=== PATIENT | male | born 1955 | race Caucasian/White ===

== ENCOUNTER 2024-09-05 02:03 | Observation (INO) | payer SELFPAY ==
[2024-09-05] VITALS (9 sets, daily range): BP systolic 136–181; BP diastolic 81–94; PULSE 75–98; RESP 14–20; TEMP 36.4–36.8; O2SAT 94–100; BMI 28.5
--- NOTE | ~2024-09-05 | XR_ITS ---
EXAMINATION: XR chest 2V 09/05/2024 02:47 INDICATION: Shortness of breath and cough. Hemoptysis. PROCEDURE: 2 view chest COMPARISON: No prior studies for comparison. FINDINGS: The lungs are clear. The cardiomediastinal silhouette is within normal limits. There are no pleural effusions. There is no pneumothorax suspected. IMPRESSION: 1: NO ACUTE CARDIOPULMONARY DISEASE. Reviewed, dictated and finalized at location A. RAL MEDIATOR
--- NOTE | ~2024-09-05 | CT_ITS ---
EXAMINATION: CTA chest PE abdomen pel DATE: 09/05/2024 7:47 FIELD SERVICE TECHNICIAN POULTRY INDICATION: Hemoptysis. TECHNIQUE: Computed tomographic angiography (CTA) of the chest, abdomen, and pelvis was performed wit hout and with 100 mL Omnipaque-350 intravenous contrast. The dose-length product was 1423.85 mGy-cm. Maximum intensity projection 3D-reconstructions of the aorta and other arteries were constructed by fabiola kan technologist on a separate workstation. COMPARISON: Chest x-ray dated 09/05/2024. FINDINGS: CHEST CTA: There is a right lower lobe mass at the azygos esophageal recess measuring 2.3 x 1.9 cm with internal coarse calcifications. Involvement of lower lobe bronchi is not excluded. There is adjacent right lo wer lobe consolidation. There is emphysema. Heart size normal. There are calcified right hilar lymph nodes, consistent with chronic granulomatous disease. There is atherosclerosis of the aorta and coron laura arteries without evidence for aneurysm or dissection. Study is not optimized for evaluation of pu lmonary embolism. There are borderline mediastinal lymph nodes, likely reactive. No significant pleur al or pericardial effusion. ABDOMEN AND PELVIS CTA: Fatty infiltration of the liver. There are calcified granulomas of the spleen. The pancreas are unrem arkable. Right adrenal gland is unremarkable. There are low density masses in the left adrenal gland, largest measuring approximate 1.3 cm, statistically most likely benign adenomas. There is mild ectas ia of the infrarenal abdominal aorta. There are bilateral renal cysts. Gallbladder is present. Nonobs tructive bowel gas pattern. No free air or free fluid. Enlarged prostate gland. Moderate lumbar spond ylosis. There is grade 1 spondylolisthesis at L5-S1 secondary to bilateral spondylolysis. Moderate th oracic spondylosis. No focal lytic or blastic lesions. IMPRESSION: 1. Right lower lobe nodule measuring up to 2.3 cm at the as azygoesophageal recess. This mass contain s coarse internal calcifications in the the related to chronic granulomatous disease, although neopla sm is not excluded. There is evidence for chronic granulomatous disease in the right hilum and spleen . Consider correlation with bronchoscopy. 2: Focal right lower lobe consolidation adjacent to the previously mentioned mass which may represent postobstructive atelectasis or pneumonia. Reviewed, dictated and finalized at location A. D SERVICE TECHNICIAN POULTRY IMPRESSION: 1. Right lower lobe nodule measuring up to 2.3 cm at the as azygoesophageal rec ess. This mass contains coarse internal calcifications in the the related to ch ronic granulomatous disease, although neoplasm is not excluded. There is eviden ce for chronic granulomatous disease in the right hilum and spleen. Consider co rrelation with bronchoscopy. 2: Focal right lower lobe consolidation adjacent to the previously mentioned ma ss which may represent postobstructive atelectasis or pneumonia.
--- OUTSIDE RECORDS SUMMARY | 2024-09-05 02:05 | XMS_ITS | Continuity of Care Document ---
Author Organization [facility] Address [address] [facility] [address] [place] [address] Phone Care Team Providers Care Power Electronics Engineer Name Role Phone Sari Vázquez Unavailable Unavailable Procedures Procedure Date Office/outpatient Visit, Est Office/outpatient Visit, Est Post-op Follow-up Visit Post-op Follow-up Visit Remove Cataract, Insert Lens Eye Exam & Treatment Echo Exam Of Eye-Professional 7 Advance Directives Directive Yes / No Effective Date File Name No Information Encounters Encounter Description Practice Location Reason(s) For Visit Diagnoses Date Provider Providers Copied on Encounter Office/outpat ient Visit, [facility], [address] [place] [address] [address], [place], [place], [id number], [place] tel:[phone] [facility] No Information 0 Kathie Vallejo [address] [facility] , [address], [place], [address], [place]. tel:[phone] Office/outpat ient Visit, [facility], [address] [place] [address] [address], [place], [place], [id number], [place] tel:[phone] SEC [facility] No Information 201 0 Kathie Vallejo [address] [facility] , [address], [place], [address], [place]. tel:[phone] [facility], [address] [place] [address] [address], [place], [place], [id number], [place] tel:[phone] SEC [facility] No Information 7 Kathie Vallejo [address] , [address], [place], [place], [facility], [place]. tel:[phone] [facility], [address] [place] [address] [address], [place], [place], [id number], tel:[phone] SEC [facility] No Information 2200 7 Kathie Vallejo [address] , [address], [place], [facility], [place]. tel:[phone] [facility], [address] [place] [address] [address], [place], [place], [id number], tel:[phone] [facility] No Information 7 Kathie Vallejo [address] [facility] , [address], [place], [facility], [place]. tel:[phone] [facility], [address] [place] [address] [address], [place], [place], [address], [place] tel:[phone] SEC [facility] No Information 7 Kathie Vallejo [address] [facility] , [address], [place], [facility], [place]. tel:[phone] Referring Provider: [address], [place], [facility]. tel:[phone] Family History Family Member Type Diagnosis Age At Onset No Information Payers Payer name Insurance type Covered constitution party ID Jose soto(s) [facility] CI [id number] Social History Type Description Quantity Date Captured Comments Sex Male Smoking Status No Information Chief Complaint And Reason For Visit No Information Reason For Referral Reason For Referral No Information History Of Present Illness Encounter Date Complaint History Of Prese nt Illness No Information Functional Status Date Functional Assessmen t No Information Instructions Date Instruction Additional Infor mation No Information Assessments Type Assessment Date No Information Patient Care Teams Name Effective Dates (start - stop) Status Members No Information
--- OUTSIDE RECORDS SUMMARY | 2024-09-05 02:06 | XMS_ITS | CONTINUITY OF CARE DOCUMENT ---
Author Name nain gillette Address Unknown Organization [facility] Address [address] [place] [address] [address] [place] [address] Phone [phone] Care Team Providers Care Cabin Furnishings Installer Name Role Phone MISAEL SEVILLA MD Unavailable [phone] MISAEL SEVILLA MD Unavailable [phone] INSURANCE PROVIDERS Payer name Policy type / Coverage type [place] red alliance party ID [facility] [employer] insurance company [id number]
--- NOTE | 2024-09-05 02:17 | ECG_ITS ---
Test Date: 2024-09-05 02:20:48 Measurements Intervals Brantley Rate: 78 P: 57 AK: 156 QRS: -24 QRSD: 103 T: 43 QT: 383 QTc: 439 Interpretive Statements SINUS RHYTHM BORDERLINE LEFT AXIS DEVIATION [QRS AXIS < -20] No previous ECG available for comparison Electronically Signed On 09-05-2024 14:30:31 STRATEGIC PLANNING SPECIALIST by Joo Myers M.D.
[2024-09-05 02:41] LABS: Basophils Absolute Auto 0.1 K/mm3 (0.0-0.1); Basophils Percent Auto 0.5 % (0.2-1.2); Eosinophils Absolute Auto 0.3 K/mm3 (0-0.3); Eosinophils Percent Auto 1.9 % (0-4.4); Hematocrit 50.4 % (42.0-52.0); Hemoglobin 16.5 g/dL (14.0-18.0); Immature Granulocyte Absolute 0.03 K/mm3 (0.00-0.031); Immature Granulocyte Percent A 0.2 % (0-0.5); Lymphocytes Absolute Auto 4.31 K/mm3 (0.9-3.2); Lymphocytes Percent Auto 30.8 % (18.3-44.2); Mean Corpuscular HGB Conc 32.7 g/dl (32-36); Mean Corpuscular Hemoglobin 30.4 pg (26-34); Mean Platelet Volume 11.1 fl (7.4-10.4); Monocytes Absolute Auto 1.4 K/mm3 (0.1-0.6); Monocytes Percent Auto 10.1 % (2.6-8.5); Neutrophils Absolute Auto 7.9 K/mm3 (1.3-6.7); Neutrophils Percent Auto 56.5 % (45.5-73.1); Platelet Count Result 288 k/mm3 (150-375); Red Blood Count 5.42 M/mm3 (4.6-6.20); Red Cell Distribution Width 13.7 % (11.5-14.5)
[2024-09-05 02:51] LABS: Alanine Aminotransferase 26 U/L (6-50); Albumin Level 4.6 g/dL (3.5-5.1); Alkaline Phosphatase 119 U/L (38-126); Anion Gap 15 mmol/L (4-12); Aspartate Amino Transferase 32 U/L (17-59); Bilirubin,Total 0.8 mg/dL (0.2-1.3); Blood Urea Nitrogen 9 mg/dL (9-20); Calcium 9.9 mg/dL (8.4-10.2); Carbon Dioxide 21 mmol/L (22-30); Chloride 104 mmol/L (98-107); Estimated CRCL calculation 97 ml/min; Estimated Glomerular Filt Rate > 60; Glucose 106 mg/dL (65-110); Sodium 140 mmol/L (137-145)
[2024-09-05 03:17] LABS: Influenza A QL RT-PCR Negative (Negative); Influenza B QL RT-PCR Negative (Negative); RSV RNA, RT-PCR Negative (Negative); SARS-CoV-2 RNA PCR Negative (Negative)
--- NOTE | 2024-09-05 07:12 | ED.SOB ---
HPI - SOB/Dyspnea General Chief Complaint: Shortness of Breath/Dyspnea Stated Complaint: coughing up blood Time Seen by Provider: 09/05/24 07:08 Source: patient and family Mode of arrival: ambulatory Limitations: no limitations History of Present Illness HPI Narrative: 69 years old white male came to the ED with his from home complaining of spitting up blood started last night. Also complaining of intermittent abdominal pain back pain. Patient denies any fever, chills, nausea, vomiting, diarrhea, constipation. History of GERD on omeprazole. Patient is not on any anti-platelet or anticoagulant medication, last time was seen by a physician 2011. He vapes, denied alcohol or drug use Related Data Home Medications ?Medication ?Instructions ?Recorded ?Confirmed ?Last Taken ?Type mcaeeuyy-jii-icxyh acid 0.4 1 tablet PO DAILY 09/05/24 09/05/24 09/04/24 History mg-lycopene 300 mcg-lutein 250 mcg tablet (Centrum Silver) omeprazole 20 mg capsule,delayed 20 mg PO DAILY 09/05/24 09/05/24 09/02/24 History release Allergies Allergy/AdvReac Type Severity Reaction Status Date / Time chlordiazepoxide (From Allergy Unknown Rash Verified 09/05/24 13:07 Librium) Review of Systems Review of Systems: All systems reviewed & are unremarkable except as noted in HPI and below PMFSH Family History Family History Father Acute myocardial infarction Mother Diabetes mellitus Mother Sepsis Social History Social History Smoking status: Never smoker Alcohol intake: never Substance use type: marijuana Other substance usage details: Vape Last use: 09/03/24 Do You Feel Safe in your Home?: Yes Lack of Transportation: No Lack of Food: Never True Current Housing: I Have Housing Concerned About Future Housing: No Difficulty Paying Gas/Electric Bills: No Difficulty Paying for Meds: No Currently Unemployed: No Education: High School Diploma/GED Difficulty w/ Childcare or Family Care: No Spiritual care concerns: No Exam Narrative: General appearance: Well-developed, well-nourished Skin: Normal color Head: Normocephalic, nontraumatic Eyes: Clear conjunctiva ENT: Oropharynx normal, ears normal, nose normal Neck: Supple, nontender Chest and respiratory: Airway patent, no respiratory distress, no accessory muscle use Heart: Regular rate/rhythm Abdomen: Soft, nontender, no organomegaly, quiet bowel sounds Vascular: Normal peripheral pulses, normal capillary refill. Musculoskeletal: Normal range of motion, nontender back Neurologic: Alert and oriented ?3, WELL SERVICE PUMP EQUIPMENT OPERATOR is normal as tested, no gross motor deficit Course Consultations Consultation #1: Dr. john Accepted consultation Date: 09/05/24 Time: 08:43 Vital Signs Vital signs: Vital Signs Pulse Rate 94 09/05/24 02:05 Respiratory Rate 19 09/05/24 02:05 Blood Pressure 181/86 H 09/05/24 02:05 Pulse Oximetry 99 09/05/24 02:05 Oxygen Delivery Room Air 09/05/24 02:05 Temperature 36.4 C 09/06/24 14:00 Pulse Rate 90 09/06/24 14:00 Respiratory Rate 18 09/06/24 14:00 Blood Pressure 147/91 H 09/06/24 14:00 Pulse Oximetry 99 09/06/24 14:00 Oxygen Delivery Room Air 09/06/24 08:00 MDM - SOB/Dyspnea Lab Data 09/05/24 02:22 09/05/24 02:21 Labs: Lab Results 09/05/24 09/05/24 Range/Units 02:21 02:22 WBC 14.0 H (4.5-10.0) K/mm3 RBC 5.42 (4.6-6.20) M/mm3 Hgb 16.5 (14.0-18.0) g/dL Hct 50.4 (42.0-52.0) % MCV 93.0 (80-100) fl MCH 30.4 (26-34) pg MCHC 32.7 (32-36) g/dl RDW 13.7 (11.5-14.5) % Plt Count 288 (150-375) k/mm3 MPV 11.1 H (7.4-10.4) fl Immature Gran % (Auto) 0.2 (0-0.5) % Neut % (Auto) 56.5 (45.5-73.1) % Lymph % (Auto) 30.8 (18.3-44.2) % Lagrange % (Auto) 10.1 H (2.6-8.5) % Eos % (Auto) 1.9 (0-4.4) % Baso % (Auto) 0.5 (0.2-1.2) % Lymph # (Auto) 4.31 H (0.9-3.2) K/mm3 [place] # (Auto) 1.4 H (0.1-0.6) K/mm3 Eos # (Auto) 0.3 (0-0.3) K/mm3 Baso # (Auto) 0.1 (0.0-0.1) K/mm3 Abs Immat Gran (auto) 0.03 (0.00-0.031) K/mm3 Absolute Neuts (auto) 7.9 H (1.3-6.7) K/mm3 Absolute Nucleated RBC 0.000 (0.0-0.012) K/mm3 Nucleated RBC % 0.0 (0.0-0.2) % Sodium 140 (137-145) mmol/L Potassium 4.0 (3.4-5.0) mmol/L Chloride 104 (98-107) mmol/L Carbon Dioxide 21 L (22-30) mmol/L Anion Gap 15 H (4-12) mmol/L BUN 9 (9-20) mg/dL Creatinine 0.69 L (0.7-1.3) mg/dL Estim Creat Clear Calc 97 ml/min Estimated GFR > 60 (59 - ) Glucose 106 (65-110) mg/dL Calcium 9.9 (8.4-10.2) mg/dL Total Bilirubin 0.8 (0.2-1.3) mg/dL AST 32 (17-59) U/L ALT 26 (6-50) U/L Alkaline Phosphatase 119 (38-126) U/L C-Reactive Protein < 0.5 (<1.0) mg/dL Total Protein 8.0 (6.3-8.2) g/dL Albumin 4.6 (3.5-5.1) g/dL Influenza A (RT-PCR) Negative (Negative) Influenza B (RT-PCR) Negative (Negative) RSV (RT-PCR) Negative (Negative) SARS-CoV-2 RNA (RT-PCR) Negative (Negative) Imaging Data Radiologist's impression: Impressions Chest X-Ray 09/05/24 05:35 IMPRESSION: 1: NO ACUTE CARDIOPULMONARY DISEASE. Chest/Abdomen/Pelvis CTA 09/05/24 07:47 IMPRESSION: 1. Right lower lobe nodule measuring up to 2.3 cm at the as azygoesophageal recess. This mass contains coarse internal calcifications in the the related to chronic granulomatous disease, although neoplasm is not excluded. There is evidence for chronic granulomatous disease in the right hilum and spleen. Consider correlation with bronchoscopy. 2: Focal right lower lobe consolidation adjacent to the previously mentioned mass which may represent postobstructive atelectasis or pneumonia. Critical Care Time Critical Care Time Critical Care Time: No Discharge Plan Discharge Patient Disposition: Still a Patient Condition: Improved
--- OUTSIDE RECORDS SUMMARY | 2024-09-05 07:41 | XMS_ITS | Continuity of Care Document ---
Author Organization [facility] Address [address] [facility] [address] [place] [address] Phone Care Team Providers Care Tumbler Machine Operator Name Role Phone Sari Vázquez Unavailable Unavailable [...] Providers Copied on Encounter Office/outpat ient Visit, [facility], [address] [place] [address] [address], [place], [place], [id number], [place] tel:[phone] [facility] [place] No Information [address] [facility] [place] , [address], [place], [address], [place]. tel:[phone] Office/outpat ient Visit, [facility], [address] [place] [address] [address], [place], [place], [id number], [place] tel:[phone] SEC [facility] No Information 201 0 Kathie Vallejo [address] [facility] , [address], [place], [address], [place]. tel:[phone] [facility], [address] [place] [address] [address], [place], [place], [id number], [place] tel:[phone] SEC [facility] No Information 7 Kathie Vallejo [address] , [address], [place], [place], [facility], [place]. tel:[phone] [facility], [address] [place] [address] [address], [place], [place], [address], tel:[phone] SEC [facility] No Information 2200 7 Kathie Vallejo [address] , [address], [place], [place], [facility], [place]. tel:[phone] [facility], [address] [place] [address] [address], [place], [place], [address], tel:[phone] [facility] No Information [address] [facility] [facility] , [address], [place], [place], [facility], [place]. tel:[phone] [facility], [address] [place] [address] [address], [place], [place], [id number], [place] tel:[phone] [facility] No Information [address] [facility] , [address], [place], [place], [facility], [place]. tel:[phone] Referring Provider: [address], [place], [place], [facility]. tel:[phone] Family History Family Member Type Diagnosis Age At Onset No Information Payers Payer name Insurance type Covered libertarian ID Jose soto(s) [facility] CI [id number] Social History Type Description Quantity Date Captured [...]
--- OUTSIDE RECORDS SUMMARY | 2024-09-05 07:41 | XMS_ITS | CONTINUITY OF CARE DOCUMENT ---
Author Name nain gillette Address Unknown Organization [facility] Address [address] [place] [address] [address] [place] [address] Phone [phone] Care Team Providers Care Turner Off Name Role Phone MISAEL SEVILLA MD Unavailable [phone] MISAEL SEVILLA MD Unavailable [phone] INSURANCE PROVIDERS Payer name Policy type / Coverage type [place] red republican ID [facility] [employer] insurance company 8 [id number]
[2024-09-05 08:50] LABS: CRP < 0.5 mg/dL (<1.0)
[2024-09-05] MEDS: AZITHROMYCIN 500 MG/NS 250 ML 500 MG/250 ML BAG 250 MG IVPB (09:01)
[2024-09-05 09:17] LABS: Lactic Acid Reflex 1.4 mmol/L (0.7-2.0)
[2024-09-05 09:30] LABS: Prothrombin Time 13.4 Seconds (11.1-14.7)
--- NOTE | 2024-09-05 11:18 | PC.NURSE ---
heart healthy lunch tray ordered
[2024-09-05] MEDS: SODIUM CHLORIDE 0.9% IV 1,000 ML 125 ML IV CONT (11:21)
--- NOTE | 2024-09-05 11:31 | P.HP_ITS ---
H&P: HPI History of Present Illness Date/Time: 09/05/24 11:31 Chief Complaint: Hemoptysis Narrative: This is a 69-year-old male who presents to the ED with complaints of spitting up blood since 2 days. He states that he has been having intermittent cough for the past week. No fever chills or night sweats. Cough was present with expectoration however was clear in the beginning. Since past 2 days he had noti keri blood in his phlegm. The amount of blood has since then reduced speech time and has not been having any blood since last night. He denies any shortness of breath or chest pain. In the ED vitals were stable except for high blood pressure. Laboratory workup revealed WBC of 14 K hemoglobin of 16.5 Chem panel was unremarkable. Influenza RSV COVID swab was negative. Chest x-ray was done which showed no acute cardiopulmonary disease. Chest abdomen pelvis CTA showed right lower lobe nodule measuring up to 2.3 cm at the age ago esophageal recess. This mass contains coarse internal calcifica tions in the related to chronic granulomatous disease although neoplasm is not excluded. There is evidence for chronic granulomatous disease in the right hilum and spleen. Consider correlation with bronchoscopy. Focal right lower lobe consolidation adjacent to the previously mentioned mass which may represent post obstructive atelectasis or pneumonia. He is admitted in this setting for further treatment. Review of Systems Review of Systems: - CONSTITUTIONAL: Denies weight loss, fe shavonne and chills. - HEENT: Denies changes in vision and he aring - RESPIRATORY: Denies SOB and cough. Se e HPI - CV: Denies palpitations and CP. - GI: Denies abdominal pain, nausea, vom iting and diarrhea. - : Denies dysuria and urinary frequen cy. - MSK: Denies myalgia and joint pain. - SKIN: Denies rash and pruritus. - NEUROLOGICAL: Denies headache and sync ope. - PSYCHIATRIC: Denies recent changes in mood. Denies anxiety and depression. Meds Home Medications and Allergies Home Medications ?Medication ?Instructions ?Recorded ?Confirmed ?Type omeprazole 20 mg capsule,delayed 20 mg PO DAILY 09/05/24 09/05/24 History release Allergies Allergy/AdvReac Type Severity Reaction Status Date / Time chlordiazepoxide (From Allergy Unknown Rash Verified 09/05/24 08:40 Librium) Vital Signs Vital Signs - 24 hr 09/05/24 02:05 09/05/24 02:16 09/05/24 05:28 Pulse Rate 94 Respiratory Rate 19 Blood Pressure 181/86 H Pulse Oximetry 99 99 100 Oxygen Delivery Room Air Room Air Room Air 09/05/24 05:31 09/05/24 08:11 09/05/24 08:30 Pulse Rate 81 83 97 Respiratory Rate 14 18 Blood Pressure 150/94 H 144/90 H Pulse Oximetry 98 96 Oxygen Delivery Exam Narrative: GENERAL: The patient is well developed, not in acute distress HEENT: Nonicteric sclerae, PERRLA, EOMI. Oropharynx clear. Moist mucous membranes. Conjunctivae appear well perfused. CHEST: Chest wall is nontender. HEART: Regular rate and rhythm without murmur, rubs, or gallops LUNGS: Clear to auscultation bilaterally. no respiratory distress ABDOMEN: Soft, positive bowel sounds, non-tender, no organomegaly. SKIN: No rash, no excessive bruising, petechiae, or purpura. NEUROLOGIC: Cranial nerves II-XII intact, alert and oriented x 3, no gross motor deficits EXTREMITIES: no edema, cyanosis or clubbing H&P: Results Labs Labs: Short CBC 09/05/24 Range/Units 02:22 WBC 14.0 H (4.5-10.0) K/mm3 Hgb 16.5 (14.0-18.0) g/dL Hct 50.4 (42.0-52.0) % Plt Count 288 (150-375) k/mm3 [facility] 09/05/24 02:21 Sodium 140 Potassium 4.0 Chloride 104 Carbon Dioxide 21 L BUN 9 Creatinine 0.69 L Glucose 106 Calcium 9.9 Liver Function 09/05/24 Range/Units 02:21 Total Bilirubin 0.8 (0.2-1.3) mg/dL AST 32 (17-59) U/L ALT 26 (6-50) U/L Alkaline Phosphatase 119 (38-126) U/L Albumin 4.6 (3.5-5.1) g/dL Assessment and Plan Assessment and plan (1) Hemoptysis: Code(s): R04.2 - Hemoptysis Status: Acute (2) Pneumonia: Code(s): J18.9 - Pneumonia, unspecified organism Status: Acute (3) Lung nodule: Code(s): R91.1 - Solitary pulmonary nodule Status: Acute Plan This is a 69-year-old male who presents to the ED with complaints of spitting up blood since 2 days. He states that he has been having intermittent cough for the past week. No fever chills or night sweats. Cough was present with expectoration however was clear in the beginning. Since past 2 days he had noticed blood in his phlegm. The amount of blood has since then reduced speech time and has not been having any blood since last night. He denies any shortness of breath or chest pain. In the ED vitals were stable except for high blood pressure. Laboratory workup revealed WBC of 14 K hemoglobin of 16.5 Chem panel was unremarkable. Influenza RSV COVID swab was negative. Chest x-ray was done which showed no acute cardiopulmonary disease. Lactic acid is normal Chest abdomen pelvis CTA showed right lower lobe nodule measuring up to 2.3 cm at the age ago esophageal recess. This mass contains coarse internal calcifications in the related to chronic granulomatous disease although neoplasm is not excluded. There is evidence for chronic granulomatous disease in the right hilum and spleen. Consider correlation with bronchoscopy. Focal right lower lobe consolidation adjacent to the previously mentioned mass which may represent post obstructive atelectasis or pneumonia. He is admitted in this setting for further treatment. Pulmonary will be consulted He will be treated for right lower lobe pneumonia with antibiotics. Sputum culture will be obtained. He will likely need bronchoscopy evaluation evaluation of this nodule given hemoptysis. No history of smoking but he does vape regularly. DVT prophylaxis SCDs Hypertension continue to monitor not on any medications at home Code status full code Hospitalist [facility] Advance Care Plan I have confirmed that the patient's Advanced Care Plan is present, code status is documented, or surrogate decision maker is listed in patient medical record.: Yes Medication Reconciliation I have utilized all available resources to obtain, update and review the patients current medications (includes all prescriptions, OTC, herbals, cannabis, and nutritional supplements).: Yes
[2024-09-05] MEDS: PANTOPRAZOLE 40 MG TABLET PO (12:12)
--- NOTE | 2024-09-05 12:47 | ADMGEN ---
This patient, Alex Kiser, was admitted to 3 [facility] Surg Room 306-02. Patient/family oriented to hospital policies and general routines including ID bracelet, bed and alarms, visiting hours, pain management, procedures, bathroom and other care routines, personal items, smoking policy, room service/diet, and visiting hours. Information on how to activate the Rapid Response Team has been discussed. Patient/Family are encouraged to report perceived risks to care and to ask questions if they do not understand what they are told or what they should do.
--- NOTE | 2024-09-05 13:07 | P.CONPL_ITS ---
Assessment and Plan Assessment and plan (1) Hemoptysis: Code(s): R04.2 - Hemoptysis Status: Acute Assessment and Plan: Symptoms began September 03 7:00 p.m., he coughed and tasted blood in his mouth, cough significant amount of blood which then stopped. On September 04 he cleared his throat, had a little bit of sputum. On September 05 he again coughed in this time he had significant blood, coughed it into the toilet, walk the dog outside and spit on the ground. His convinced him to come to the hospital. He has not vapes since arrival, hemoptysis stopped, has not had any for about 24 hours. Our plan is to treat for pneumonia, let the patient be discharged home, follow-up in the office a repeat the CT scan in 6 weeks. If he has hemoptysis in the meantime, he needs return to [place]. I do not think that the nodule is causing hemoptysis. It is not connected to an airway. We can consider EBUS if we decide the nodule in the right hilum needs to be biopsied. Right now, my thinking is that this nodule is likely benign. (2) Pneumonia: Code(s): J18.9 - Pneumonia, unspecified organism Status: Acute Assessment and Plan: Empiric treatment for pneumonia, minimal infiltrate on chest x-ray. He did have fever or chills, does not have sputum production. He is a lifelong nonsmoker but he does vape marijuana and probably smokes marijuana, he would not say so in front of his but he did smoke marijuana for several years. He has never been a cigarette smoker. Pneumonia lab testing is still pending, his swab was negative for influenza A/B, RSV and COVID. (3) Lung nodule: Code(s): R91.1 - Solitary pulmonary nodule Status: Acute Assessment and Plan: Has a 2.3 cm partially calcified nodule in the right hilar area, not amenable to regular bronchoscopy. He is being treated for pneumonia which is appropriate. He had significant hemoptysis, spit in the toilet, this covered a large amount of toilet water, then when outside, had hemoptysis and returned inside the house. This patient vapes which is a known cause of hemoptysis. A calcification in the nodule suggests this may be a benign nodule. He needs follow-up in the clinic, his has our number and she can call Sunday for an appointment in a month. I would like to repeat his CT scan in 6 weeks. He also needs a primary care doctor, has had a 35 lb weight loss, increasing exertional dyspnea, wheezing, will also need pulmonary function testing. He needs a colonoscopy. Has not seen a doctor in years, last times was 2 kidney stones 9 years ago. (4) Unintended weight loss: Code(s): R63.4 - Abnormal weight loss Status: Acute Assessment and Plan: He has had 35 lb lost in a year and a half with many GI symptoms during same period of time; hard stools alternating with loose explosive stools, no blood in stools, however has daily disruptions in his bowel habits. Never had a colonoscopy. He is overdue. (5) Current cannabis vaping on some days: Code(s): F12.90 - Cannabis use, unspecified, uncomplicated Status: Acute Assessment and Plan: If you need it, eat it. He uses marijuana for control of back pain. Dose not want to eat edibles due to unreliable effects. From the lung standpoint, edibles are better than vaping. Vaping is associated with diffuse alveolar damage, lipoid penumonia and hemoptysis. I strongly encourage NOT vaping. (6) Flu vaccine refused: Code(s): Z28.21 - Immunization not carried out because of patient refusal Status: Acute Assessment and Plan: Patient is a lifelong vaccination refused her, did not have COVID vaccination and had 1 episode of COVID, no flu, RSV or other vaccines. Plan plan: Right lung nodule 2.3 cm with calcifications, making cancer less likely. Hemoptysis was severe, quick, stopped. Last hemoptysis was over 24 hours ago. He had a 35 lb weight loss in 1.5 years with fatigue. Needs colonoscopy. He needs a primary care doctor; has not seen a doctor in decades, urologist 9 years with 2 kidney stones Needs repeat CT chest in 6 weeks to see if this has cleared. Recommend stopping vaping, and he should use edibles as this is not as bad for his lungs. He wheezes at home, often with any exertion. He has had 35 lb weight loss in 1.5 years. Has abdominal bloating, pain, alternating hard and liquid stools, never had a colonscopy. and daughter reviewed images, discussed these issues. checks BP at home, often 120s/80-90 diastolic. He likely has undiagnosed hypertension. Will need an echo eventually. If you need it, eat it. He uses marijuana for control of back pain. Dose not want to eat edibles due to unreliable effects. From the lung standpoint, edibles are better than vaping. Vaping is associated with diffuse alveolar damage, lipoid pneumonia and hemoptysis. I strongly encourage NOT vaping. sees Bernadine Singh MD and will see if this doctor can take a new patient. [place] [id number] Ph:? tel:[phone] Please call our office Sunday [phone] Sunday after 8:30 am for appt in a month. Return to [place] if coughing blood returns. Written instructions given, discussed with the and the daughter at length. History of Present Illness History of Present Illness Consult date: 09/06/24 Requesting physician: Tony Lantigua MD Chief complaint: Hemoptysis/Pulmonary Mass/Pneumonia Narrative: Patient was seen September 06, 2024 at 12:15, room 306; his Mary is present and daughter Carly is present. Patient agrees to the interview with his family members present. NEW: Alex Kiser is a 69-year-old man admitted through the ER Sep 05, with hemoptysis, abnormal chest CT. Dr Lantigua called me from the ER. He has a RLL nodule which is 2.3 cm located in the as ago esophageal recess. .Symptoms began September 03 7:00 p.m., he coughed and tasted blood in his mouth, cough significant amount of blood which then stopped. On September 04 he cleared his throat, had a little bit of sputum. On September 05 he again coughed in this time he had significant blood, coughed it into the toilet, walk the dog outside and spit on the ground. His convinced him to come to the hospital. He retired from [employer] factory about 8 years ago. He was exposed to chlorine, sulfuric acid, ammonia and other chemicals but he did not feel that he had any breathing problems at the time that he work there. He lives in [facility] and has lived there is whole life. He is a never smoker, he has vape for at least a year and a half, vapes medical marijuana for severe back and neck pain. He has also smoked marijuana for several years. He has not tried at a bull marijuana, does not think that it is effective for him. According to his , he has been weak more short of breath with less exertion in the last year and a half, during the time that he has lost 35 lb. He is now short of breath trying to do things it previously were quite easy for him. He tries to do the full grocery shopping for a full month in 1 day, has to sit down and rest when he brings the groceries in. He wheezes with exertion. He has not had this problem before. SLEEP: He snores but does not wake with a dry mouth, does not gasp for breath and does not have excessive daytime sleepiness. He and his sleep in separate rooms because he thrashes and moves around quite a bit at night. They have been together 35 years, and he slings is arms and hits her during sleep. There is no history of acting out his dreams. Family history no history of lung cancer. Father at age 49 from a myocardial infarction, also a kidney stone. Mother age 69, blood infection, had cancer of the female organs, had her bladder removed. Patient does not have a history of asthma. He was seen in [place] at the ER a decade or so ago for an episode of bronchitis. The patient has not had a medical doctor for decades. He did have urologist 9 years ago when he had 2 kidney stones. He has a scant cough with very little sputum production, does not have any medications at home. DATA * 09/05/2024 CTA ; CHEST CTA: There is a right lower lobe mass at the azygos esophageal recess measuring 2.3 x 1.9 cm with internal coarse calcifications. Involvement of lower lobe bronchi is not excluded. There is adjacent right lower lobe consolidation. There is emphysema. Heart size normal. There are calcified right hilar lymph nodes, consistent with chronic granulomatous disease. There is atherosclerosis of the aorta and coronary arteries without evidence for aneurysm or dissection. Study is not optimized for evaluation of pulmonary embolism. There are borderline mediastinal lymph nodes, likely reactive. No significant pleural or pericardial effusion. ABDOMEN AND PELVIS CTA: Fatty infiltration of the liver. There are calcified granulomas of the spleen. The pancreas are unremarkable. Right adrenal gland is unremarkable. There are low density masses in the left adrenal gland, largest measuring approximate 1.3 cm, statistically most likely benign adenomas. There is mild ectasia of the infrarenal abdominal aorta. There are bilateral renal cysts. Gallbladder is present. Nonobstructive bowel gas pattern. No free air or free fluid. Enlarged prostate gland. Moderate lumbar spondylosis. There is grade 1 spondylolisthesis at L5-S1 secondary to bilateral spondylolysis. Moderate thoracic spondylosis. No focal lytic or blastic lesions. IMPRESSION: 1. Right lower lobe nodule measuring up to 2.3 cm at the as azygoesophageal recess. This mass contains coarse internal calcifications in the the related to chronic granulomatous disease, although neoplasm is not excluded. There is evidence for chronic granulomatous disease in the right hilum and spleen. Consider correlation with bronchoscopy. 2: Focal right lower lobe consolidation adjacent to the previously mentioned mass which may represent postobstructive atelectasis or pneumonia. Review of Systems 2 Review of Systems: 35 lb unintended weight loss in the last year and a half; bowels habits have changed in the last year and a half also, very hard stools alternating with diarrhea, unpredictable output with explosion of feces verses sometimes constipation. No blood in his stools. He has severe low back pain and cervical neck pain, this is why he vapes marijuana for the last 1.5 years. Prior to that, smokes marijuana after he quit working. He feels that living in [place] has been difficult for his breathing, grew up there. Has difficulty breathing with weather changes. He has intermittent wheezing but does not use any inhaler. He is more short of breath with less exertion over the last few months. Walking up one flight of stairs is hard for him now. [facility] Family History Family History (Updated 09/05/24 @ 13:07 by Marcella Pete RN) Father Acute myocardial infarction Mother Diabetes mellitus Mother Sepsis Social History Social History Smoking status: Never smoker Alcohol intake: never Substance use type: marijuana Other substance usage details: Vape Last use: 09/03/24 Do You Feel Safe in your Home?: Yes Lack of Transportation: No Lack of Food: Never True Current Housing: I Have Housing Concerned About Future Housing: No Difficulty Paying Gas/Electric Bills: No Difficulty Paying for Meds: No Currently Unemployed: No Education: High School Diploma/GED Difficulty w/ Childcare or Family Care: No Spiritual care concerns: No Meds Home Medications and Allergies Home Medications ?Medication ?Instructions ?Recorded ?Confirmed ?Type yewnclzw-aec-dstnm acid 0.4 1 tablet PO DAILY 09/05/24 09/05/24 History mg-lycopene 300 mcg-lutein 250 mcg tablet (Centrum Silver) omeprazole 20 mg capsule,delayed 20 mg PO DAILY 09/05/24 09/05/24 History release Allergies Allergy/AdvReac Type Severity Reaction Status Date / Time chlordiazepoxide (From Allergy Unknown Rash Verified 09/05/24 13:07 Librium) Vital Signs Vital Signs - 24 hr 09/05/24 02:05 09/05/24 02:16 09/05/24 05:28 Temperature Pulse Rate 94 Respiratory Rate 19 Blood Pressure 181/86 H Pulse Oximetry 99 99 100 Oxygen Delivery Room Air Room Air Room Air 09/05/24 05:31 09/05/24 08:11 09/05/24 08:30 Temperature Pulse Rate 81 83 97 Respiratory Rate 14 18 Blood Pressure 150/94 H 144/90 H Pulse Oximetry 98 96 Oxygen Delivery 09/05/24 11:32 Temperature 36.6 C Pulse Rate 91 Respiratory Rate 20 Blood Pressure 136/81 Pulse Oximetry 96 Oxygen Delivery Exam 2 Narrative: GEN: Alert, oriented, not in distress. Room air. HEENT: pupils are equal, EOMI, symmetrical face; oral membranes moist, Mallampati III airway, large long uvula NECK: Trachea is midline CHEST: Equal air entry, symmetric excursion, clear breath sounds CV: Regular S1S2 no m/g/r ABD : (+) bowel sounds Extremities : no clubbing, cyanosis, edema, no calf tenderness PSYCH: normal thought and speech Results Laboratory Findings 09/05/24 02:22 09/05/24 02:21 ABG, PT/INR, D-dimer: PT/INR, D-dimer PT 13.4 Seconds (11.1-14.7) 09/05/24 08:53 INR 1.0 09/05/24 08:53 Abnormal lab findings: Abnormal Labs 09/05/24 09/05/24 02:21 02:22 WBC 14.0 H MPV 11.1 H [place] % (Auto) 10.1 H Lymph # (Auto) 4.31 H [place] # (Auto) 1.4 H Absolute Neuts (auto) 7.9 H Carbon Dioxide 21 L Anion Gap 15 H Creatinine 0.69 L
[2024-09-06] MEDS: SODIUM CHLORIDE 0.9% IV 1,000 ML 125 ML IV CONT ×2 (00:51→08:50)
[2024-09-06 05:46] VITALS: BP 149/94; PULSE 86; RESP 14; TEMP 36.4; O2SAT 99
[2024-09-06] MEDS: AZITHROMYCIN 500 MG/NS 250 ML 500 MG/250 ML BAG 250 MG IVPB (08:51)
[2024-09-06] MEDS: PANTOPRAZOLE 40 MG TABLET PO (08:51)
--- NOTE | 2024-09-06 12:25 | PM.IMPN ---
Progress Note: A&P Assessment and Plan (1) Hemoptysis: Code(s): R04.2 - Hemoptysis Status: Acute (2) Pneumonia: Code(s): J18.9 - Pneumonia, unspecified organism Status: Acute (3) Lung nodule: Code(s): R91.1 - Solitary pulmonary nodule Status: Acute Plan Hemoptysis Right lower lobe nodule CT chest showed right lower love nodule up to 2.3 cm hemoptysis resolved, none mroe than 24 hrs Pulmonology following and plans for bronchoscopy RLL Pneumonia CT chest showed focal right lobe consolidation ?post obstructive Continue Rocephin, Azithromycin and Flagyl, will discharge on Augmentin and Azithromycin F/u with Blood culture, MRSA monitor BPH with urinary frequency Patient noted he has not been on Flomax since retiring due to losing his insurance restart Flomax If frequency does not improve, will discharge on [place] to follow up with Urology referral to urology on discharge Constipation No prior colonoscopy discussed with patient that he will need colonoscopy He will follow up with PCP for referral Continue Miralax as needed DVT prophylaxis on SCDs due to hemoptysis Subjective Date/time seen: 09/06/24 12:25 Interval history: Patient comfortable at bedside and noted no coughing up blood more than 24 horus Exam Narrative: GENERAL: The patient is well developed, not in acute distress HEENT: Nonicteric sclerae, PERRLA, EOMI. Oropharynx clear. Moist mucous membranes. Conjunctivae appear well perfused. CHEST: Chest wall is nontender. HEART: Regular rate and rhythm without murmur, rubs, or gallops LUNGS: Clear to auscultation bilaterally. no respiratory distress ABDOMEN: Soft, positive bowel sounds, non-tender, no organomegaly. SKIN: No rash, no excessive bruising, petechiae, or purpura. NEUROLOGIC: Cranial nerves II-XII intact, alert and oriented x 3, no gross motor deficits EXTREMITIES: no edema, cyanosis or clubbing Objective Data Vital Signs Vital Signs: Vital Signs - 24 hr 09/05/24 14:00 09/05/24 21:56 09/06/24 05:46 Temperature 98.2 F 97.5 F L 97.5 F L Pulse Rate 98 75 86 Respiratory Rate 20 20 14 Blood Pressure 157/86 H 142/81 H 149/94 H Pulse Oximetry 94 99 99 Oxygen Delivery 09/06/24 08:00 Temperature Pulse Rate Respiratory Rate Blood Pressure Pulse Oximetry Oxygen Delivery Room Air Intake/Output Intake/Output: Intake & Output 09/03/24 09/04/24 09/05/24 09/06/24 23:59 23:59 23:59 23:59 Intake Total 1540 1787.9 Output Total 300 Balance 1240 1787.9 Meds/Results Medications: Active Medications Generic Name Dose Route Start Last Admin Trade Name Freq PRN Reason Stop Dose Admin Acetaminophen 650 mg 09/05/24 08:45 Acetaminophen 325 Mg Tablet PO Q4H PRN Mild Pain (1-3) or Fever Ceftriaxone Sodium 1 gm in 50 mls @ 100 mls/hr 09/05/24 09:00 09/06/24 10:35 Rocephin 1 Gm/Ns 50 Ml IVPB Infused Q24H RUDY Infusion Azithromycin 500 mg in 250 mls @ 250 mls/hr 09/05/24 09:00 09/06/24 09:50 Zithromax IVPB Infused Q24H RUDY Infusion Sodium Chloride 1,000 mls @ 125 mls/hr 09/05/24 08:45 09/06/24 08:50 Normal Saline Iv IV CONT 125 mls/hr .Q8H RUDY Administration Pantoprazole Sodium 40 mg 09/05/24 11:40 09/06/24 08:51 Pantoprazole 40 Mg Tablet PO 40 mg QAM RUDY Administration Tamsulosin HCl 0.4 mg 09/06/24 12:25 Tamsulosin Hcl 0.4 Mg Capsule PO QAM [facility] Radiology Results: ITS Impressions Chest X-Ray 09/05/24 05:35 IMPRESSION: 1: NO ACUTE CARDIOPULMONARY DISEASE. Chest/Abdomen/Pelvis CTA 09/05/24 07:47 IMPRESSION: 1. Right lower lobe nodule measuring up to 2.3 cm at the as azygoesophageal recess. This mass contains coarse internal calcifications in the the related to chronic granulomatous disease, although neoplasm is not excluded. There is evidence for chronic granulomatous disease in the right hilum and spleen. Consider correlation with bronchoscopy. 2: Focal right lower lobe consolidation adjacent to the previously mentioned mass which may represent postobstructive atelectasis or pneumonia.
[2024-09-06] MEDS: TAMSULOSIN HCL 0.4 MG CAPSULE PO (13:56)
[2024-09-06 14:00] VITALS: BP 147/91; PULSE 90; RESP 18; TEMP 36.4; O2SAT 99
--- NOTE | 2024-09-09 08:34 | PM.DS ---
DS: Admitting Diagnosis Discharge Date 09/06/24 Admitting Diagnosis Hemoptysis DS: Discharge Diagnosis Discharge Diagnosis (1) Pneumonia: Code(s): J18.9 - Pneumonia, unspecified organism Status: Acute (2) Lung nodule: Code(s): R91.1 - Solitary pulmonary nodule Status: Acute DS: Summary Hospital Course Hospital Course: This is a 69-year-old male who presents to the ED with complaints of spitting up blood since 2 days. He states that he has been having intermittent cough for the past week. No fever chills or night sweats. Cough was present with expectoration however was clear in the beginning. Since past 2 days he had noticed blood in his phlegm. The amount of blood has since then reduced speech time and has not been having any blood since last night. He denies any shortness of breath or chest pain. In the ED vitals were stable except for high blood pressure. Laboratory workup revealed WBC of 14 K hemoglobin of 16.5 Chem panel was unremarkable. Influenza RSV COVID swab was negative. Chest x-ray was done which showed no acute cardiopulmonary disease. Chest abdomen pelvis CTA showed right lower lobe nodule measuring up to 2.3 cm at the age ago esophageal recess. This mass contains coarse internal calcifications in the related to chronic granulomatous disease although neoplasm is not excluded. There is evidence for chronic granulomatous disease in the right hilum and spleen. Consider correlation with bronchoscopy. Focal right lower lobe consolidation adjacent to the previously mentioned mass which may represent post obstructive atelectasis or pneumonia. Patient was started on Rocephin, Azithromycin and flagyl, during hospitalization patient did not have any hemoptysis. Pulmonology was consulted evaluated patient and recommended bronchoscopy for the hemoptysis and RLL nodule. however since the hemoptysis resolved bronchoscopy was scheduled for outpatient. Thus patient was discharged on Abx and will follow up with pulmonology for outpatient bronchoscopy F/u with PCP in 3-5 days f/u with pulm as instructed Time Spent with Patient Time attestation: Total time spent providing and/or coordinating discharge services: DS: Data Data Completed and Pending Labs on day of discharge: Preliminary micro results at discharge 09/05/24 08:53 Blood Culture - Preliminary Blood 09/05/24 08:53 Blood Culture - Preliminary Blood Discharge Plan Discharge Attending physician on discharge: Sully Akbar Consulting providers: Apryl Nicole; Anastacio Owen; Joo Myers; Luis Carlos Mensah Discharging Clinician: Sully Akbar Anticipated Discharge Date/Time: 09/06/24 12:34 Patient Disposition: Home, Self-Care Activity: as tolerated Diet: as tolerated Discharge Instructions: F/u with PCP in 3-5 days F/u with referral to urology PCP to refer to Gi for colonoscopy Patient Instructions: Antibiotic Form Patient Language: Ugandan Stand Alone Forms: General Discharge Information Follow-up/Referrals: randall [Other] Apryl Nicole MD [Physician] - (F/u with pulmonology as instructed ) Elias Yanez MD [Physician] - (F/u with urology in 2 weeks ) UNKNOWN,DOCTOR [Non-Staff] - (F/u with PCP in 3-5 days ) Discharge Medications: New tamsulosin 0.4 mg Capsule 0.4 mg PO QAM 30 Days Qty: 30 0RF amoxicillin-pot clavulanate 875-125 mg tablet 1 tablet PO Q12H 6 Days Qty: 12 0RF azithromycin 250 mg tablet 250 mg PO DAILY 3 Days Qty: 3 0RF Rx Instructions: start on day 2 of therapy polyethylene glycol 3350 [Miralax] 17 gram/dose powder 17 g PO DAILY 30 Days Qty: 510 0RF Continued omeprazole 20 mg capsule,delayed release(DR/EC) 20 mg PO DAILY Centrum Silver 0.4 mg-300 mcg- 250 mcg tablet 1 tablet PO DAILY Date of admission: 09/05/24 08:45 Primary Care Provider: PHYSICIAN,APPRENTICE LINEMAN THIRD STEP Admitting Provider: Gerald Guajardo Attending physician on admission: Sully Akbar Condition: Improved
[2024-09-10 22:53] LABS: Pneumococcal Antigen Urine NOT DETECTED
[2024-09-11 17:48] LABS: Mycoplasma IgM Antibody Titer 231 U/mL
[2024-09-11 23:47] LABS: Legionella pneumophila Ag Ur NOT DETECTED
== END 2024-09-06 15:45 | disposition home or self-care (01) ==
LOC: ANHED 08:50 → ANH3MEDSUR 09-06 12:37
PROVIDERS: Internal Medicine; Student in an Organized Health Care Education/Training Program; Admitting Provider Internal Medicine; Emergency Provider Emergency Medicine; Visit Provider Internal Medicine
DX: J18.9 Pneumonia, unspecified organism (principal); R04.2 Hemoptysis; R91.1 Solitary pulmonary nodule; K21.9 Gastro-esophageal reflux disease without esophagitis; F17.290 Nicotine dependence, other tobacco product, uncomplicated; R63.4 Abnormal weight loss; Z68.28 Body mass index [BMI] 28.0-28.9, adult; F12.90 Cannabis use, unspecified, uncomplicated; I10 Essential (primary) hypertension; N40.1 Benign prostatic hyperplasia with lower urinary tract symptoms; R35.0 Frequency of micturition; K59.00 Constipation, unspecified; Z28.21 Immunization not carried out because of patient refusal; Z20.822 Contact with and (suspected) exposure to COVID-19; Z28.310 Unvaccinated for COVID-19; Z79.899 Other long term (current) drug therapy
CPT/HCPCS: 36415; 71046; 71275; 74177; 80053; 83605; 85025; 85610; 85730; 86140; 86738; 87040; 87449; 87637; 87899; 93005; 96361; 96365; 96366; 96367; 99285; A9270; G0378; J0456; J0696; J7030; Q9967

== ENCOUNTER 2024-10-23 13:41 | Outpatient (CLI) | payer MEDICARE, SELFPAY ==
--- NOTE | ~2024-10-23 | CT_ITS ---
Non-contrast CT scan of the Abdomen and Pelvis Clinical indication: Bloating Technique: 2.5 mm axial scans were obtained through the abdomen and pelvis without intravenous or or al contrast. Dose reduction technique was used on this scan by utilizing automated exposure control a nd iterative reconstruction technique. The dose-length product (DLP) was 983.95 mGy-cm. COMPARISON: 09/05/2024 Findings: Images through the lung bases reveal no abnormalities. There is no evidence of renal or ureteral calculi. The kidneys and the ureters are nondilated. The liver, spleen, pancreas, gallbladder, and right adrenal gland appear normal. Small low-density le ft adrenal nodule is compatible with adenoma. There are atherosclerotic calcifications of the aorta. . There is no evidence of bowel obstruction. Images through the pelvis were performed. There is no evidence of ascites or lymphadenopathy. Urinary bladder unremarkable. Prostate gland is enlarged. There are bilateral L5 pars interarticularis defec ts, with 7 mm anterolisthesis of L5 over S1. There is advanced degenerative disc narrowing throughout the lumbar spine. Impression: No acute abnormality. Chronic findings, as above. Reviewed, dictated and finalized at location . Impression: No acute abnormality. Chronic findings, as above.
--- NOTE | ~2024-10-23 | CT_ITS ---
CT Scan of the Chest without Contrast: Clinical Indication: Pulmonary nodule Technique: Contiguous sections were acquired throughout the chest without intravenous contrast. Dose reduction technique was used on this scan by utilizing automated exposure control and iterative recon struction technique. The dose-length product (DLP) was 185.47 mGy-cm. COMPARISON: 09/05/2024 Findings: There is no evidence of any significant mediastinal, hilar or axillary lymphadenopathy. Calcified med iastinal and right hilar lymph nodes are present. There are mild coronary artery calcifications.. There is no evidence of pleural or pericardial effusion. Coarsely calcified nodule in the right infrahilar region medially is again present, decreased noncalc ified component as compared to prior exam.. Mild emphysema present. Images through the upper abdomen reveal no abnormalities. Impression: Benign-appearing densely calcified right infrahilar nodule, with decreased noncalcified component as compared to prior exam. Mild emphysema. Reviewed, dictated and finalized at [facility]. Impression: Benign-appearing densely calcified right infrahilar nodule, with decreased nonc alcified component as compared to prior exam. Mild emphysema.
--- OUTSIDE RECORDS SUMMARY | 2024-10-23 14:10 | XMS_ITS | Continuity of Care Document ---
Author Organization [facility] Address [address] [place] [address] Phone Care Team Providers Care Spool Winder Name Role Phone Sari Vázquez Unavailable Unavailable [...] Providers Copied on Encounter Office/outpat ient Visit, [facility], [address] [place] [address] [address], [place], [place], [id number], [place] tel:[phone] [facility] [place] No Information 0 Kathie Guo. [address] [facility] [place] , [address], [place], [address], [place]. tel:[phone] Office/outpat ient Visit, [facility], [address] [place] [address] [address], [place], [place], [id number], [place] tel:[phone] SEC [facility] No Information 201 0 Kathie Vallejo [address] [facility] , [address], [place], [address], [place]. tel:[phone] [facility], [address] [place] [address] [address], [place], [place], [id number], [place] tel:[phone] [facility] No Information 7 Kathie Vallejo [address] , [address], [place], [place], [facility], [place]. tel:[phone] [facility], [address] [place] [address] [address], [place], [place], [id number], tel:[phone] [facility] No Information 2[address] 7 Kathie Vallejo [address] , [address], [place], [facility], [place]. tel:[phone] [facility], [address] [place] [address] [address], [place], [place], [id number], tel:[phone] [facility] No Information 7 Kathie Valle[address] [facility] , [address], [place], [facility], [place]. tel:[phone] [facility], [address] [place] [address] [address], [place], [place], [address], [place] tel:[phone] [facility] No Information 7 Kathie Valle[address] [facility] , [address], [place], [facility], [place]. tel:[phone] Referring Provider: [address], [place], [facility]. tel:[phone] Family History Family Member Type Diagnosis Age At Onset No Information Payers Payer name Insurance type Covered republican ID Jose soto(s) [facility] CI [id number] Social History Type Description Quantity Date Captured [...]
--- OUTSIDE RECORDS SUMMARY | 2024-10-23 14:10 | XMS_ITS | CONTINUITY OF CARE DOCUMENT ---
Author Name nain gillette Address Unknown Organization [facility] Address [address] [place] [address] [address] [place] [address] Phone [phone] Care Team Providers Care Scientific Informatics Analyst Name Role Phone MISAEL SEVILLA MD Unavailable MISAEL SEVILLA MD Unavailable INSURANCE PROVIDERS Payer name Policy type / Coverage type [place] red alliance party ID [facility] Int[employer] [id number]
== END 2024-10-23 13:42 | disposition home or self-care (01) ==
PROVIDERS: PCP Nurse Practitioner; Referring Provider Internal Medicine Critical Care Medicine; Visit Provider Nurse Practitioner
DX: R91.1 Solitary pulmonary nodule (principal); K46.9 Unspecified abdominal hernia without obstruction or gangrene; R14.0 Abdominal distension (gaseous); J43.9 Emphysema, unspecified
CPT/HCPCS: 71250; 74176

== ENCOUNTER 2024-12-31 12:08 | Outpatient (CLI) | payer MEDICARE, SELFPAY ==
--- OUTSIDE RECORDS SUMMARY | 2024-12-31 12:13 | XMS_ITS | Continuity of Care Document ---
Author Organization [facility] Address [address] [place] [address] [place] [address] Phone Care Team Providers Care Agriculture Specialist Name Role Phone Sari Vázquez Unavailable Unavailable [...] Providers Copied on Encounter Office/[place]pat [place], [facility], [address] [place] [address] [address], [place], [place], [id number], [place] tel:[phone] [facility] [place] No Information 0 Kathie Vallejo [address] [facility] [place] , [address], [place], [address], [place]. tel:[phone] Office/outpat ient Visit, [facility], [address] [address] [address], [place], [place], [id number], [place] tel:[phone] SEC [facility] No Information 201 0 Kathie Vallejo [address] [facility] , [address], [place], [address], [place]. tel:[phone] [facility], [address] [place] [address] [address], [place], [place], [id number], [place] tel:[phone] SEC [facility] No Information 7 Kathie Vallejo [address] , [address], [place], [facility], [place]. tel:[phone] [facility], [address] [place] [address] [address], [place], [place], [id number], tel:[phone] [facility] No Information 2[address] Kathie Vallejo [address] , [address], [place], [place], [facility], [place]. tel:[phone] [facility], [address] [place] [address] [address], [place], [place], [id number], tel:[phone] [facility] No Information 7 Kathie Valle[address] [facility] , [address], [place], [place], [facility], [place]. tel:[phone] [facility], [address] [place] [address] [address], [place], [place], [id number], [place] tel:[phone] [facility] No Information 7 Kathie [address]le[address] [facility] , [address], [place], [place], [facility], [place]. tel:[phone] Referring Provider: [address], [place], [place], [facility]. tel:[phone] Family History Family Member Type Diagnosis Age At Onset No Information Payers Payer name Insurance type Covered democrat ID Jose soto(s) [facility] CI [id number] Social History Type Description Quantity Date Captured [...]
--- OUTSIDE RECORDS SUMMARY | 2024-12-31 12:14 | XMS_ITS | CONTINUITY OF CARE DOCUMENT ---
Author Name nain gillette Address Unknown Organization [facility] Address [address] [place] [address] [address] [place] [address] Phone [phone] Care Team Providers Care Ballast Cleaning Machine Operator Name Role Phone MISAEL SEVILLA MD Unavailable MISAEL SEVILLA MD Unavailable [phone] INSURANCE PROVIDERS Payer name Policy type / Coverage type [place] red constitution party ID [facility] Intolo[employer] [id number]
--- NOTE | 2024-12-31 12:46 | ECHO_ITS ---
Patient Info Name: Alex Kiser Age: 69 years : 1955 Gender: Male Ht: 72 in Wt: 225 lbs BSA: 2.30 m2 HR: 76 bpm BP: 144 / 82 mmHg Technical Quality: Good Exam Date: 12/31/2024 12:54 PM Patient Status: O Admit Date: 12/31/2024 Exam Type: CA echo doppler color flow Complete two-dimensional, color flow and Doppler transthoracic echocardiogram is performed. Vamp Marker: Damaris Rangel Attending Provider: José Miguel Borges DO Summary 1. Complete two-dimensional, color flow and Doppler transthoracic echocardiogram is performed. 2. Left ventricular chamber dimension is normal. 3. Left ventricular systolic function is normal, estimated at 60-65. 4. The left ventricular diastolic function is grade I diastolic dysfunction. 5. E/e' 5 is not elevated. 6. No pulmonary hypertension, estimated pulmonary arterial systolic pressure is 21 mmHg. 7. There is trace pulmonic regurgitation. Left Ventricle E/e' 5 is not elevated. Left ventricular chamber dimension is normal. Left ventricular systolic function is normal, estimated at 60-65. The left ventricular diastolic function is grade I diastolic dysfunction. Right Ventricle Right ventricular chamber dimension is normal. Right ventricular systolic function is normal and with normal TAPSE 2.0 cm. Left Atria Left atrial chamber dimension is normal. Right Atria Right atrial chamber dimension is normal. Aortic Valve The aortic valve is trileaflet. There is no aortic valve stenosis. There is no aortic valve regurgitation. Pulmonic Valve There is trace pulmonic regurgitation. Mitral Valve There is no mitral valve stenosis. There is no mitral valve regurgitation. Tricuspid Valve There is no tricuspid valve regurgitation. No pulmonary hypertension, estimated pulmonary arterial systolic pressure is 21 mmHg. Pericardium/Pleural There is no pericardial effusion. Inferior Vena Cava Normal inferior vena cava with >50% collapse upon inspiration consistent with normal right atrial pressure, 5 mmHg. Aorta The aortic root size at the sinus of Valsalva is normal. Left Ventricular Outflow Tract Name Value Normal LVOT 2D LVOT Diameter 2.2 cm LVOT Doppler LVOT Peak Velocity 90 cm/s LVOT Peak Gradient 3 mmHg LVOT Mean Gradient 2 mmHg LVOT VTI 17 cm LVOT VTI/AV VTI Ratio 0.8 LVOT Stroke Volume 64 ml LVOT CO 14.2 l/min LVOT CI 6.2 l/min/m2 Pulmonic Valve Name Value Normal PV Doppler PV Peak Velocity 140 cm/s PV Peak Gradient 8 mmHg Mitral Valve Name Value Normal MV Diastolic Function MV E Peak Velocity 53 cm/s MV A Peak Velocity 66 cm/s MV E/A 0.8 MV Decel Time (PW) 256 ms MV Annular TDI MV E/e' (Septal) 7.1 MV E/e' (Lateral) 4.9 MV E/e' (Average) 6.0 Tricuspid Valve Name Value Normal TV Regurgitation Doppler TR Peak Velocity 198 cm/s TR Peak Gradient 10 mmHg Estimated PAP/RSVP RA Pressure 5 mmHg <=5 PA Systolic Pressure 21 mmHg <36 RV Systolic Pressure 21 mmHg <36 TV Annular TDI TV Lateral Ange s' Velocity 11.7 cm/s >=9.5 Aorta Name Value Normal Ascending Aorta Ao Root Diameter (MM) 3.9 cm Ao Root Diam Index (MM) 1.7 cm/m2 Aortic Valve Name Value Normal AV Doppler AV Peak Velocity 105 cm/s AV Peak Gradient 4 mmHg AV Mean Gradient 3 mmHg AV VTI 22 cm AV Area (Cont Eq VTI) 2.9 cm2 >=3.0 AV Area (Cont Eq Julio) 3.2 cm2 AV DI (Julio) 0.86 AV Regurgitation 2D LVOT Area 3.7 cm2 Ventricles Name Value Normal LV Dimensions 2D/MM IVS Diastolic Thickness (2D) 1.0 cm 0.6-1.0 LVID Diastole (2D) 4.2 cm 4.2-5.8 LVIW Diastolic Thickness (2D) 1.0 cm 0.6-1.0 LVID Systole (2D) 2.5 cm 2.5-4.0 LVOT Diameter 2.2 cm LV Mass (2D Cubed) 138.09 g 88.00-224.00 LV Mass Index (2D Cubed) 60 g/m2 49-115 Relative Wall Thickness (2D) 0.47 <=0.42 LV Fractional Shortening/Ejection Fraction 2D/MM LV Fractional Shortening (2D) 39 % 25-43 LV EF (2D Teichholz) 70 % LV Diastolic Volume (4C MOD) 111 ml LV EF (4C MOD) 70 % LV Diastolic Volume (2C MOD) 143 ml LV EF (2C MOD) 56 % LV Diastolic Volume (BP MOD) 125 ml 62-150 LV Diastolic Volume Index (BP MOD) 54 ml/m2 34-74 LV Systolic Volume (BP MOD) 49 ml 21-61 LV Systolic Volume Index (BP MOD) 21 ml/m2 11-31 LV EF (BP MOD) 61 % 52-72 LV Diastolic Length (4C) 8.8 cm LV Systolic Length (4C) 6.3 cm LV Stroke Volume (4C MOD) 78 ml RV Dimensions 2D/MM RVID Diastole (2D) 4.0 cm 2.1-3.5 Atria Name Value Normal LA Dimensions LA Dimension (MM) 3.1 cm 3.0-4.0 LA Volume (4C A-L) 53 ml LA Volume (BP A-L) 65 ml RA Dimensions RA Systolic Major [place] Length (4C) 4.9 cm 2.1-2.7 RA Area (4C) 16.1 cm2 <=18.0 Report Signatures
[2024-12-31 12:47] LABS: Cholesterol 207 mg/dL (0-200); HDL Direct 36 mg/dL; Triglycerides 154 mg/dL (<150)
[2024-12-31 12:57] LABS: LDL Cholesterol Direct 109 mg/dL
== END 2024-12-31 12:09 | disposition home or self-care (01) ==
PROVIDERS: PCP Nurse Practitioner; Visit Provider Internal Medicine Cardiovascular Disease
DX: I11.0 Hypertensive heart disease with heart failure (principal); I50.30 Unspecified diastolic (congestive) heart failure; R06.09 Other forms of dyspnea
CPT/HCPCS: 36415; 80061; 93306